=== PATIENT | female | born 1955 | race Caucasian/White ===

== ENCOUNTER 2016-10-02 07:53 | Day surgery (SDC) | payer BC ==
[~2016-10-02 07:53] MED LIST: Midazolam 1 MG/ML 2 ML SDV ONE; Propofol 200 MG/20 ML SDV ONE; fentaNYL 100 MCG/2 ML SDV ONE
[2016-10-02] MEDS ORDERED: Sodium Chloride 0.9% 1,000 ML IV SCH (08:30)
[2016-10-02 10:40] VITALS: BP 118/70
--- NOTE | 2016-10-02 11:47 | OR ---
DATE OF PROCEDURE: 10/02/2016 PROCEDURE: Colonoscopy. FINDINGS: Ascending colon polyp, 5 mm, completely removed using cold biopsy forceps. COMPLICATIONS: None. INSPECTOR BOILER: None. ANESTHESIA: MAC. PREOPERATIVE DIAGNOSIS: Screening colonoscopy. POSTOPERATIVE DIAGNOSIS: Screening colonoscopy. RISKS: Risks, benefits, alternatives, and limitations, including, but not limited to infection, bleeding, and perforation were explained to the patient, who wished to proceed. PROCEDURE IN DETAIL: The patient was placed in left lateral decubitus position. A digital rectal exam was performed without abnormality. The scope was introduced and advanced atraumatically to the ileocecal valve. The scope was brought back to the ascending, transverse, descending colon, and retroflexed. One polyp in the ascending colon was identified and removed. No abnormalities on retroflexion. The patient tolerated the procedure well. Magdy Waters MD /[id number]
== END 2016-10-02 10:54 | disposition home or self-care (01) ==
LOC: JP.SDS 07:53
PROVIDERS: ATTEND Surgery
DX: Z12.11 Encounter for screening for malignant neoplasm of colon (principal); K63.5 Polyp of colon; I10 Essential (primary) hypertension; I25.2 Old myocardial infarction; Z87.891 Personal history of nicotine dependence; Z79.899 Other long term (current) drug therapy
CPT/HCPCS: 45380; 88305; J2250; J2704; J3010; J7040

== ENCOUNTER 2020-01-23 06:38 | Day surgery (SDC) | payer BC ==
[2020-01-23] MEDS ORDERED: fentaNYL 100 MCG/2 ML SDV ONE (07:02)
[2020-01-23] MEDS ORDERED: Midazolam 1 MG/ML 2 ML SDV ONE (07:02)
[2020-01-23] MEDS ORDERED: Propofol 200 MG/20 ML SDV ONE (07:03)
[2020-01-23] MEDS ORDERED: Sodium Chloride 0.9% 1,000 ML IV SCH (07:45)
[2020-01-23 09:24] VITALS: PULSE 78
[2020-01-23 09:28] VITALS: BP 122/74
--- NOTE | 2020-01-23 12:02 | OR ---
DATE OF PROCEDURE: 01/23/2020 SURGEON: Magdy Waters MD PROCEDURE: Colonoscopy. FINDINGS: An ascending colon polyp of approximately 5 mm, completely removed using cold biopsy forceps. COMPLICATIONS: None. LAP LAYER: None. ANESTHESIA: MAC. PREOPERATIVE DIAGNOSIS: Screening colonoscopy. POSTOPERATIVE DIAGNOSIS: Screening colonoscopy. RISKS: Risks, benefits, alternatives, and limitations including, but not limited to, infection, bleeding, and perforation were explained to the patient, who wished to proceed. PROCEDURE IN DETAIL: The patient was placed in left lateral decubitus position. Digital rectal exam was performed without abnormality. Scope was introduced and advanced atraumatically to the ileocecal valve. Scope was brought back through the ascending, transverse, descending colon, and retroflexed. The aforementioned polyp in the ascending colon was identified and could be removed as described above. No abnormal bleeding after removal. The scope was brought back through the remainder of the colon and retroflexed. No old or new blood. No masses. No polyps. No diverticulosis. The only other findings were external hemorrhoid tags. The patient tolerated the procedure well. Magdy Waters MD /[id number]
== END 2020-01-23 09:33 | disposition home or self-care (01) ==
LOC: JP.SDS 06:38
PROVIDERS: ATTEND Surgery
DX: Z12.11 Encounter for screening for malignant neoplasm of colon (principal); D12.2 Benign neoplasm of ascending colon; E11.9 Type 2 diabetes mellitus without complications; I10 Essential (primary) hypertension; E78.5 Hyperlipidemia, unspecified; F41.9 Anxiety disorder, unspecified
CPT/HCPCS: 45380; J2250; J2704; J3010; J7030

== ENCOUNTER 2020-03-16 07:53 | Day surgery (SDC) | payer BC ==
[~2020-03-16 07:53] MED LIST changes: +Acetaminophen 500 MG Tab PO ONE; +Bupivacaine 0.5% 50 ML MDV ONE; +Dextrose 5%-Lactated Ringers 1,000 ML IV SCH; +Lidocaine 1% with EPINEPHrine 1:100,000 50 ML MDV ONE; -Midazolam 1 MG/ML 2 ML SDV ONE; -Propofol 200 MG/20 ML SDV ONE; +ceFAZolin 2 GM in Premix Bag 1 BAG IV ONE; -fentaNYL 100 MCG/2 ML SDV ONE
[2020-03-16] MEDS ORDERED: Lidocaine 1% 20 ML MDV INJECT ONE (08:12)
[2020-03-16] MEDS ORDERED: Acetaminophen 500 MG Tab PO ONE (08:15)
[2020-03-16] MEDS ORDERED: Dextrose 5%-Lactated Ringers 1,000 ML IV SCH ×2 (09:00→09:45)
[2020-03-16] MEDS ORDERED: Neostigmine Methylsulfate 1 MG/ML 5 ML Syringe ONE (09:13)
[2020-03-16] MEDS ORDERED: Ondansetron 4 MG/2 ML SDV ONE (09:13)
[2020-03-16] MEDS ORDERED: Rocuronium 50 MG/5 ML Vial ONE (09:13)
[2020-03-16] MEDS ORDERED: Propofol 200 MG/20 ML SDV ONE (09:13)
[2020-03-16] MEDS ORDERED: Dexamethasone 4 MG/ML SDV ONE (09:13)
[2020-03-16] MEDS ORDERED: Glycopyrrolate 0.2 MG/ML 5 ML MDV ONE (09:13)
[2020-03-16] MEDS ORDERED: fentaNYL 250 MCG/5 ML SDV ONE (09:14)
[2020-03-16] MEDS ORDERED: ceFAZolin 2 GM in Premix Bag 1 BAG IV ONE (09:45)
[2020-03-16] MEDS ORDERED: fentaNYL 100 MCG/2 ML SDV ONE (11:17)
--- NOTE | 2020-03-16 11:38 | MY ---
Stereo Gd Br Bx add Lesion LT, Guide Ndl Wire Loc LT, Post Procedure Digital Lt CLINICAL HISTORY: Left breast carcinoma PROCEDURE: Following informed consent patient was placed in the stereotactic mammography unit for a lateral to medial approach. Skin was prepped. Stereotactic image was obtained showing the asymmetric density biopsy marker and microcalcifications. The lateral superior aspect of the lesion were identified and localized. 1% Xylocaine anesthesia was then infiltrated into the skin. The localization wire and guide needle were placed in the guiding device. The device was then advanced to the to the superior lateral target. Needle was advanced. Stereotactic image showed appropriate position of the needle. Guidewire was then advanced and needle was removed. The inferior medial margin was identified and localized. 1% Xylocaine anesthesia was placed in the skin. The needle was then advanced to the target destination. The position was confirmed by stereotactic imaging. Wire was then advanced and needle removed. TWO-VIEW MAMMOGRAM Post procedure CC and LM images were obtained. They show the 2 guidewires to be at the superior lateral and inferior medial margins of the target lesion CONCLUSION: 2 stereotactic hook wire placements in the lateral inferior left breast. Wire positions were discussed with Dr. Elmore post procedure and prior to surgery No complications were encountered
[2020-03-16] MEDS ORDERED: Bupivacaine 0.5%/EPINEPHrine 1:200,000 50 ML MDV ONE (11:51)
--- NOTE | 2020-03-16 11:53 | MY ---
Surgical Specimen Breast FINDINGS: The surgical specimen was shows the described asymmetric density and microcalcifications with the localization wires beyond the margins of any the asymmetric density or microcalcifications IMPRESSION: Surgical specimen appears adequate
[2020-03-16 13:44] VITALS: BP 128/68; PULSE 60
--- NOTE | 2020-03-25 11:25 | OR ---
DATE OF PROCEDURE: 03/16/2020 SURGEON: Ray Elmore MD PREOPERATIVE DIAGNOSIS: Ductal carcinoma in situ, left breast. POSTOPERATIVE DIAGNOSIS: Ductal carcinoma in situ, left breast. OPERATIVE PROCEDURE: Left partial mastectomy (). ANESTHESIA: General. ROUTE RETURNER: Maribel Wahl PA-C INDICATIONS FOR PROCEDURE: This 64-year-old female presenting with an area of ductal carcinoma in situ. She was noted to have quite a bit in the way of comedo necrosis and the patient clearly meets criteria for postoperative adjuvant radiotherapy following a left partial mastectomy. Potential risks of the procedure including bleeding, infection, possible positive margins requiring resection were reviewed and the patient wishes to proceed. DETAILS OF PROCEDURE: The patient was taken to the operating room and placed in supine position. Preoperatively, the patient had 2 wires placed which more or less bracketed the area of microcalcifications. The left breast and surrounding areas were prepped and draped, and initially a transversely oriented elliptical incision more or less between the 2 wires was made and carried down through the skin, subcutaneous tissue. Subcutaneous flaps were then raised superiorly, medially, laterally, and inferiorly to gain an access to a plane of dissection that would likely be away from the involvement by the DCIS. This was carried down circumferentially down to the level of the pectoralis fascia and that specimen delivered from the field. The 4 sides of the excision along with the deep margin were then labeled with sutures with a different configuration so as to allow pathologic evaluation of those margins. To increase the margin distance, then the 4 sides of the area of excision were then re- excised removing roughly 0.5 cm of additional tissue on all 4 sides. These specimens were then individually sent as well with additional markers identifying the final excision margin. At that point, no further problems were noted. The area was irrigated with antibiotic-containing saline solution. Near the lateral aspect of the breast, a 10-Lao Keron-Acuna drain was then placed to eliminate accumulation of fluid in the wound. Wound was then closed carefully with a variety of 3-0 and 4-0 Vicryl stitches, which appeared to bring this together in a cosmetically acceptable manner, and the incision was then closed with a 4-0 Vicryl subcuticular stitch and Steri-Strips applied. The patient was taken to the recovery room in satisfactory condition. There were no evident complications. Physician acute care nursing assistant, Maribel Wahl, played an essential role in assisting in this case, helping to position the patient, retract structures as needed, as well as suturing and cutting sutures when indicated. Her presence improved patient safety and decreased operative time. Ray Elmore MD /[id number]
== END 2020-03-16 14:25 | disposition home or self-care (01) ==
LOC: JP.SDS 07:53
PROVIDERS: ATTEND Surgery
DX: N63.20 Unspecified lump in the left breast, unspecified quadrant (principal); I10 Essential (primary) hypertension; F41.9 Anxiety disorder, unspecified; E78.2 Mixed hyperlipidemia; E11.29 Type 2 diabetes mellitus with other diabetic kidney complication; N39.0 Urinary tract infection, site not specified; Z87.891 Personal history of nicotine dependence
CPT/HCPCS: 19082; 19281; 19301; 76000; 76098; 77065; 88307; 88341; 88342; A9270; J0690; J1100; J2405; J2704; J2710; J3010; J3490; J7121

== ENCOUNTER 2023-07-24 08:22 | Day surgery (SDC) | payer MEDICARE, BC ==
[2023-07-24] MEDS: Lactated Ringers 1,000 ML IV SCH (09:03)
[2023-07-24] MEDS ORDERED: Propofol 200 MG/20 ML SDV ONE (10:03)
[2023-07-24] MEDS ORDERED: fentaNYL 50 MCG/ML SDV ONE (10:03)
[2023-07-24] MEDS ORDERED: Midazolam 1 MG/ML 2 ML SDV ONE (10:03)
[2023-07-24 13:08] VITALS: BP 123/74; PULSE 70
== END 2023-07-24 13:12 | disposition home or self-care (01) ==
LOC: JP.SDS 08:22
PROVIDERS: ATTEND Student in an Organized Health Care Education/Training Program
DX: D12.0 Benign neoplasm of cecum (principal); K62.1 Rectal polyp; K57.30 Diverticulosis of large intestine without perforation or abscess without bleeding; K29.70 Gastritis, unspecified, without bleeding; D64.9 Anemia, unspecified; E78.5 Hyperlipidemia, unspecified; I12.9 Hypertensive chronic kidney disease with stage 1 through stage 4 chronic kidney disease, or unspecified chronic kidney disease; N18.9 Chronic kidney disease, unspecified; E11.22 Type 2 diabetes mellitus with diabetic chronic kidney disease; F41.9 Anxiety disorder, unspecified; E11.29 Type 2 diabetes mellitus with other diabetic kidney complication; K21.9 Gastro-esophageal reflux disease without esophagitis; I25.2 Old myocardial infarction; Z86.010 Personal history of colon polyps; Z79.899 Other long term (current) drug therapy
CPT/HCPCS: 43239; 45380; 88305; J2250; J2704; J3010; J7120